=== PATIENT | female | born 1990 | race Caucasian/White ===

== ENCOUNTER → 2019-09-02 16:35 | Outpatient (CLI) | payer OTHER, SELFPAY ==
[2019-09-03 22:53] LABS: COVID19 Sendout Not Detected (Not Detected)
== END ==
PROVIDERS: PCP Family Medicine; Visit Provider Physician Assistant
DX: R05 Cough (principal)
CPT/HCPCS: 87635

== ENCOUNTER → 2019-11-23 15:59 | Outpatient (CLI) | payer OTHER, SELFPAY ==
--- NOTE | 2019-11-23 16:02 | DI.RAD.S_ITS ---
PROCEDURE: XR FOOT LT MIN 3V INDICATIONS: PT for 2 month atraumatic bilateral foot and ankle pain L>R TECHNIQUE: 3 views of the foot were acquired. COMPARISON: None. FINDINGS: Bones: No fractures or dislocations. No suspicious bony lesions. Plantar calcaneal spur. Mild first MTP joint degeneration. Soft tissues: No tibiotalar joint effusion. Achilles tendon appears normal. IMPRESSION: Plantar calcaneal spur Dictated by: Kenneth Castanon M.D. on 11/23/2019 at 16:44 Approved by: Kenneth Castanon M.D. on 11/23/2019 at 16:46
--- NOTE | 2019-11-23 16:02 | DI.RAD.S_ITS ---
PROCEDURE: XR FOOT RT MIN 3V INDICATIONS: PT for 2 month atraumatic bilateral foot and ankle pain L>R TECHNIQUE: 3 views of the foot were acquired. COMPARISON: None. FINDINGS: Bones: No fractures or dislocations. No suspicious bony lesions. Mild first MTP degeneration. Plantar calcaneal spur. Soft tissues: No tibiotalar joint effusion. Achilles tendon appears normal. IMPRESSION: Plantar calcaneal spur. Mild first MTP joint degeneration Dictated by: Kenneth Castanon M.D. on 11/23/2019 at 16:46 Approved by: Kenneth Castanon M.D. on 11/23/2019 at 16:49
--- NOTE | 2019-11-23 16:02 | DI.RAD.S_ITS ---
PROCEDURE: XR ANKLE LT MIN 3V INDICATIONS: PT for 2 month atraumatic bilateral foot and ankle pain L>R TECHNIQUE: 3 views of the ankle were acquired. COMPARISON: None. FINDINGS: Bones: No fractures or dislocations. Ankle mortise is normally aligned. No suspicious bony lesions. Plantar calcaneal spur. Soft tissues: No tibiotalar joint effusion. Achilles tendon appears normal. IMPRESSION: Plantar calcaneal spur. Dictated by: Kenneth Castanon M.D. on 11/23/2019 at 16:41 Approved by: Kenneth Castanon M.D. on 11/23/2019 at 16:43
--- NOTE | 2019-11-23 16:02 | DI.RAD.S_ITS ---
PROCEDURE: XR ANKLE RT MIN 3V INDICATIONS: PT for 2 month atraumatic bilateral foot and ankle pain L>R TECHNIQUE: 3 views of the ankle were acquired. COMPARISON: [facility], CR, XR FOOT RT MIN 3V, 11/23/2019, 15:53. [facility], CR, XR FOOT LT MIN 3V, 11/23/2019, 15:53. FINDINGS: Bones: No fractures or dislocations. Ankle mortise is normally aligned. No suspicious bony lesions. Plantar calcaneal spur Soft tissues: No tibiotalar joint effusion. Achilles tendon appears normal. IMPRESSION: Plantar calcaneal spur Dictated by: Kenneth Castanon M.D. on 11/23/2019 at 16:43 Approved by: Kenneth Castanon M.D. on 11/23/2019 at 16:44
== END ==
PROVIDERS: PCP Registered Nurse Diabetes Educator; Referring Provider Registered Nurse Diabetes Educator; Visit Provider Registered Nurse Diabetes Educator
DX: M25.571 Pain in right ankle and joints of right foot (principal); M25.572 Pain in left ankle and joints of left foot; M72.2 Plantar fascial fibromatosis; M77.32 Calcaneal spur, left foot; M77.31 Calcaneal spur, right foot; M19.071 Primary osteoarthritis, right ankle and foot
CPT/HCPCS: 73610; 73630

== ENCOUNTER 2020-11-03 21:19 | Emergency (ER) | payer OTHER, SELFPAY ==
[2020-11-03 21:28] VITALS: BP 135/65; PULSE 101; RESP 16; TEMP 36.6; O2SAT 97; BMI 40.3
[2020-11-03 21:47] LABS: Add Manual Diff / Slide Review NO; Basophils Absolute Auto 100 /uL (0-100); Basophils Percent Auto 0.6 % (0-2); Eosinophils Absolute Auto 200 /uL (0-450); Eosinophils Percent Auto 1.3 % (2-4); Hematocrit 45.2 % (36-46); Hemoglobin 15.4 g/dL (12.0-16.0); Lymphocytes Absolute Auto 900 /uL (1100-4500); Lymphocytes Percent Auto 7.3 % (25-40); Mean Corpuscular HGB Conc 34.2 % (30-36); Mean Corpuscular Hemoglobin 29.7 PG (26-34); Mean Corpuscular Volume 86.9 fL (80-100); Monocytes Absolute Auto 700 /uL (0-900); Monocytes Percent Auto 5.2 % (3-14); Neutrophils Absolute Auto 10900 /uL (1500-7000); Neutrophils Percent Auto 85.6 % (50-75); Platelet Count 209 X10^3/uL (150-400); Red Cell Distribution Width 13.3 % (11.6-14.8); White Blood Cell Count 12.7 X10^3/uL (4.5-11.0)
[2020-11-03] MEDS: ONDANSETRON 4 MG/2 ML INJ IV (21:47)
[2020-11-03] MEDS: SODIUM CHLORIDE 0.9% 1,000 ML 1000 ML IV (21:50)
[2020-11-03 21:53] LABS: Alanine Aminotransferase 22 IU/L (<35); Albumin 4.4 g/dL (3.5-5.0); Albumin Globulin Ratio 1.3 (1.0-2.8); Alkaline Phosphatase 105 U/L (38-126); Aspartate Aminotransferase 25 IU/L (14-36); BUN Creatinine Ratio 13.9 (6-22); Bilirubin Total 0.6 mg/dL (0.2-1.3); Blood Urea Nitrogen 14 mg/dL (7-17); Calcium 9.4 mg/dL (8.4-10.2); Carbon Dioxide 30 mmol/L (22-32); Chloride 100 mmol/L (98-107); Estimated Glomerular Filt Rate > 60.0 mL/min (>60); Globulin 3.5 g/dL (1.7-4.1); Glucose 96 mg/dL (70-100); HEMOLYSIS < 15 (0-50); Lipase 92 U/L (23-300); Potassium 3.6 mmol/L (3.4-5.1); Sodium 140 mmol/L (137-145); Total Protein 7.9 g/dL (6.3-8.2)
--- NOTE | 2020-11-03 22:44 | ED.ABDPAIN ---
HPI - Abdominal Pain General Chief Complaint: Abdominal Pain Stated Complaint: vomiting, chills, fever Time Seen by Provider: 11/03/20 21:35 Source: patient Mode of arrival: Wheelchair History of Present Illness HPI narrative: 30-year-old woman with no significant medical issues presents with diffuse mild abdominal pain with acute onset of vomiting at 8:00 p.m.. Last food was at 6:30 a.m. in the evening. She had a bowel movement that was normally formed just prior to the episode of emesis. She describes no fevers, palpitations, headaches. She states that today she was feeling her usual self. Initially she describes the abdominal pain as 7 to 8/10 she had 3 episodes of vomiting and now is down to 2 to 3/10 and achy from the effort of vomiting. She has not had any diarrhea. There is no blood in the emesis. She describes no dysuria, no vaginal discharge notes that she has been amenorrheic for the last 4 years Related Data Home Medications Medication Instructions Recorded Confirmed No Known Home Medications 11/23/19 10/29/20 Allergies Allergy/AdvReac Type Severity Reaction Status Date / Time diphenhydramine Allergy Severe SEVERE Verified 10/29/20 14:22 [From UNISOM flu-like Sx (DIPHENHYDRAMINE)] Review of Systems Review of Systems Narrative: Remainder of complete review of systems is otherwise unremarkable except for that included in the HPI. Patient History Medical History (Updated 11/03/20 @ 22:52 by Rose Byrd MD) Allergic rhinitis Ankle pain Anxiety (Unknown) Chickenpox Chronic cough (2003) Depression (Unknown) Dysmenorrhea (Unknown) Plantar fasciitis Surgical History History of nasal surgery (10/2000) Hx of tonsillectomy (~1993) Hx of tooth extraction Family History Grandfather Cancer Grandmother Age: 83 Cancer Mother Age: 63 Pancarditis Grandmother Age: 88 Cancer Grandfather No problems noted. Social History Smoking Status: Never smoker second hand exposure: No (only in passing) alcohol intake: current (rare occasion) substance use type: does not use Smoking Status: Never smoker alcohol intake frequency: 0-2 drinks per day Substance Use Type: does not use Exam Narrative Exam Narrative: General: Appears fatigued but Able to give a complete and coherent history. Well-nourished well-developed HEENT: Moist mucous membranes, normal sclera with reactive pupils, Respiratory: Lungs are clear to auscultation, no wheezing no rales no rhonchi. Full and symmetrical air movement Cardiac: Regular rate and rhythm no murmurs no bruits Abdomen: Soft, minimally tender to palpation, no rebound or guarding, good bowel tones, no flank pain Skin: Warm and dry, no rashes Neurologic: Grossly neurologically intact with no obvious asymmetries or abnormalities Extremities: No trauma, well perfused Psych: Cooperative, appropriate insight and affect Initial Vital Signs Initial Vital Signs: Vital Signs Temperature 97.9 F 11/03/20 21:28 Pulse Rate 101 H 11/03/20 21:28 Respiratory Rate 16 11/03/20 21:28 Blood Pressure 135/65 11/03/20 21:28 Pulse Oximetry 97 11/03/20 21:28 Course Orders Ordered: ED Orders 11/03/20 21:30 EKG-12 Lead Stat 11/03/20 21:35 Complete Blood Count AUTO DIFF Stat Comprehensive Metabolic Panel Stat Lipase Stat Discontinued Medications Sodium Chloride (Normal Saline 0.9%) 1,000 mls @ 1,000 mls/hr IV BOLUS ONE Stop: 11/03/20 22:43 Last Infusion: 11/03/20 23:01 Dose: 0 mls/hr Documented by: Admin: 11/03/20 21:50 Dose: 1,000 mls/hr Documented by: GHAZAL Ondansetron HCl (Ondansetron 4 Mg/2 Ml Inj) 4 mg IV NOW ONE Stop: 11/03/20 21:41 Last Admin: 11/03/20 21:47 Dose: 4 mg Documented by: GHAZAL Ondansetron HCl (Ondansetron 4 Mg Odt Prepack) 1 bottle MISC SEEINSTR ONE Stop: 11/03/20 22:53 Last Admin: 11/03/20 23:04 Dose: 1 bottle Documented by: GHAZAL Vital Signs Vital signs: Vital Signs - 8 hr 11/03/20 21:28 11/03/20 23:12 Temperature 97.9 F 98.7 F Pulse Rate 101 H 85 Respiratory Rate 16 18 Blood Pressure 135/65 130/67 Pulse Oximetry 97 98 MDM - Abdominal Pain Medical Records Attestation: I reviewed the patient's medical records. Lab Data Attestation: I reviewed the patient's lab results. Result diagrams: 11/03/20 21:35 11/03/20 21:35 Labs: Lab Results 11/03/20 11/03/20 Range/Units 21:35 21:35 WBC 12.7 H (4.5-11.0) X10^3/uL RBC 5.20 (4.0-5.2) X10^6/uL Hgb 15.4 (12.0-16.0) g/dL Hct 45.2 (36-46) % MCV 86.9 (80-100) fL MCH 29.7 (26-34) PG MCHC 34.2 (30-36) % RDW 13.3 (11.6-14.8) % Plt Count 209 (150-400) X10^3/uL Neut % (Auto) 85.6 H (50-75) % Lymph % (Auto) 7.3 L (25-40) % Lipscomb % (Auto) 5.2 (3-14) % Eos % (Auto) 1.3 L (2-4) % Baso % (Auto) 0.6 (0-2) % Neut # (Auto) 34057 H (6504-6842) /uL Lymph # (Auto) 900 L (5767-2559) /uL Lipscomb # (Auto) 700 (0-900) /uL Eos # (Auto) 200 (0-450) /uL Baso # (Auto) 100 (0-100) /uL Sodium 140 (137-145) mmol/L Potassium 3.6 (3.4-5.1) mmol/L Chloride 100 (98-107) mmol/L Carbon Dioxide 30 (22-32) mmol/L BUN 14 (7-17) mg/dL Creatinine 1.01 (0.52-1.04) mg/dL Estimated GFR > 60.0 (>60) mL/min BUN/Creatinine Ratio 13.9 (6-22) Glucose 96 (70-100) mg/dL Calcium 9.4 (8.4-10.2) mg/dL Total Bilirubin 0.6 (0.2-1.3) mg/dL AST 25 (14-36) IU/L ALT 22 (<35) IU/L Alkaline Phosphatase 105 (38-126) U/L Total Protein 7.9 (6.3-8.2) g/dL Albumin 4.4 (3.5-5.0) g/dL Globulin 3.5 (1.7-4.1) g/dL Albumin/Globulin Ratio 1.3 (1.0-2.8) Lipase 92 (23-300) U/L ECG Data Interpretation: Sinus rhythm at a rate of 98 Normal intervals, normal axis No acute ischemic changes MDM Narrative Medical decision making narrative: 30-year-old woman with 3 episodes of vomiting and associated mild abdominal pain. Feeling significantly better after L of fluid and Zofran. She is re-examined prior to discharge and has no significant abdominal pain with palpation and certainly not a surgical abdomen. We did discuss appendicitis and how it can be a bit tricky. At this point I do not suspect sepsis, bowel obstruction, appendicitis, cholecystitis or cholelithiasis, pyelonephritis, urinary tract infection, appendicitis. I encouraged her to return if symptoms do not improve. She will be discharged home with a Zofran prepack. Discharge Plan Departure Patient Disposition: Home Clinical Impression: Nausea & vomiting Qualifiers: Vomiting type: unspecified Vomiting Intractability: non-intractable Qualified Code(s): R11.2 - Nausea with vomiting, unspecified Instructions: DI for Appendicitis -- Adult, Nausea and Vomiting-Adult Activity Restrictions/Additional Instructions: Thank you for coming in today I am glad you are feeling better after fluid and nausea medication. Your workup in the emergency room does not suggest an acute surgical diagnosis, there is no evidence of appendicitis at this time however if things get worse and you begin having pain that is localizing to the right lower quadrant I would encourage you to return to the emergency room for further evaluation. You can use the Zofran every 6 hours as needed for nausea. I would encourage you to stick to a bland diet and plenty of fluid tomorrow. I wish you the best Prescriptions: No Action No Known Home Medications RF: 0 Referrals: Tawanda Christensen ARNP [Primary Care Provider] -
[2020-11-03] MEDS: ONDANSETRON 4 MG ODT PREPACK 1 BOTTLE MISC (23:04)
[2020-11-03 23:12] VITALS: BP 130/67; PULSE 85; RESP 18; TEMP 37.1; O2SAT 98
== END 2020-11-03 23:13 | disposition home or self-care (01) ==
PROVIDERS: Emergency Provider Emergency Medicine; PCP Registered Nurse Diabetes Educator
DX: R11.2 Nausea with vomiting, unspecified (principal); R10.9 Unspecified abdominal pain
CPT/HCPCS: 36415; 80053; 83690; 85025; 93005; 96361; 96374; 99284; J2405

== ENCOUNTER → 2022-07-01 08:54 | Outpatient (CLI) | payer OTHER, SELFPAY ==
[2022-07-01 09:35] LABS: Hematocrit 42.3 % (36-46); Hemoglobin 14.9 g/dL (12.0-16.0); Mean Corpuscular HGB Conc 35.3 % (30-36); Mean Corpuscular Hemoglobin 30.5 PG (26-34); Mean Corpuscular Volume 86.5 fL (80-100); Platelet Count 215 X10^3/uL (150-400); Red Blood Cell Count 4.89 X10^6/uL (4.0-5.2); Red Cell Distribution Width 13.5 % (11.6-14.8); White Blood Cell Count 8.5 X10^3/uL (4.5-11.0)
[2022-07-01 09:41] LABS: Hemoglobin A1C% w Est Avg Glu 6.4 % (4.0-6.0)
[2022-07-01 09:51] LABS: Alanine Aminotransferase 29 IU/L (<35); Albumin Globulin Ratio 1.3 (1.0-2.8); Alkaline Phosphatase 126 U/L (38-126); Aspartate Aminotransferase 22 IU/L (14-36); BUN Creatinine Ratio 9.7 (6-22); Bilirubin Total 0.4 mg/dL (0.2-1.3); Blood Urea Nitrogen 6 mg/dL (7-17); Calcium 8.5 mg/dL (8.4-10.2); Carbon Dioxide 22 mmol/L (22-32); Chloride 104 mmol/L (98-107); Cholesterol 204 mg/dL (140-199); Estimated Glomerular Filt Rate > 60 mL/min (>60); Globulin 3.1 g/dL (1.7-4.1); Glucose 145 mg/dL (70-100); HDL Cholesterol 26 mg/dL (40-60); HEMOLYSIS 22 (0-50); LDL Cholesterol Calculated 108 mg/dL (<100); Potassium 3.8 mmol/L (3.4-5.1); Sodium 136 mmol/L (137-145); Total Protein 7.1 g/dL (6.3-8.2); Triglycerides 348 mg/dL (35-150)
[2022-07-01 10:01] LABS: Follicle Stimulating Hormone 3.05 mIU/mL; Luteinizing Hormone 4.49 mIU/mL
[2022-07-01 10:16] LABS: Estradiol, Total 57.7 pg/mL; Testosterone 101 ng/dL (5.71-77.0)
[2022-07-01 10:26] LABS: TSH w/ Reflex to FT4 2.31 uIU/mL (0.47-4.68)
== END ==
PROVIDERS: PCP Registered Nurse Diabetes Educator; Referring Provider Registered Nurse Diabetes Educator; Visit Provider Registered Nurse Diabetes Educator
DX: Z00.00 Encounter for general adult medical examination without abnormal findings (principal); L68.0 Hirsutism; N91.2 Amenorrhea, unspecified
CPT/HCPCS: 36415; 80053; 80061; 82627; 82670; 83001; 83002; 83036; 83498; 84146; 84403; 84443; 85027

== ENCOUNTER → 2022-07-17 10:54 | Outpatient (CLI) | payer OTHER, SELFPAY ==
[2022-07-17 12:02] LABS: Glucose 105 mg/dL (70-100)
== END ==
PROVIDERS: PCP Registered Nurse Diabetes Educator; Referring Provider Registered Nurse Diabetes Educator; Visit Provider Registered Nurse Diabetes Educator
DX: R73.9 Hyperglycemia, unspecified (principal)
CPT/HCPCS: 36415; 82947

== ENCOUNTER → 2022-08-28 07:21 | Outpatient (CLI) | payer OTHER, SELFPAY ==
--- NOTE | 2022-08-28 07:22 | DI.US.S_ITS ---
PROCEDURE: US PELVIC COMPLETE INDICATIONS: AMENORRHEA TECHNIQUE: Real-time scanning was performed of the pelvic organs, with image documentation. Additional endovaginal scanning was necessary due to incomplete visualization of the adnexal and endometrial structures by transabdominal scanning. COMPARISON: [facility], , PELVIC COMPLETE, 07/14/2017, 14:23. FINDINGS: Uterus: Uterus is anteverted and normal in size at 6.6 x 2.8 x 3.6 cm. The myometrium is homogeneous. No discrete uterine fibroid is seen. The endometrium measures 2.2 mm combined thickness. There is no endometrial mass or fluid. Ovaries: The right ovary measures 2.7 x 5.3 x 3 cm, with a calculated ovarian volume of 22.5 cc. The left ovary measures 4.1 x 4.3 x 2 cm, with a calculated ovarian volume of 18.5 cc. The ovaries have a normal sonographic appearance. Greater than 12 follicles can be seen in each ovary. No adnexal masses are seen. Other: No pathologic free abdominal or pelvic fluid. IMPRESSION: 1. Normal appearing uterus and endometrium. 2. Greater than 12 follicles are seen in each ovary. Findings meet the [place] definition of polycystic ovaries. In the absence of ovulatory dysfunction or clinically/biochemically diagnosed hyperandrogenism, findings are non specific and do not indicate the presence of polycystic ovarian syndrome. We strive to produce accurate, complete, and clear reports of imaging services. To assist us in improving patient care, this report was composed using standard report templates and voice recognition software. Therefore, it may contain abnormal punctuation, insertions and/or omissions. Occasional wrong-word or sound-alike substitutions may occur. Though we review the report and make efforts to correct it, we do recommend that the report be read carefully in proper context to recognize any text inaccuracies. Dictated by: Igor Severino M.D. on 08/28/2022 at 9:42 Approved by: Igor Severino M.D. on 08/28/2022 at 9:45
== END ==
PROVIDERS: PCP Registered Nurse Diabetes Educator; Referring Provider Registered Nurse Diabetes Educator; Visit Provider Registered Nurse Diabetes Educator
DX: N91.2 Amenorrhea, unspecified (principal)
CPT/HCPCS: 76830; 76856; 93975

== ENCOUNTER 2022-11-01 15:52 | Emergency (ER) | payer OTHER, SELFPAY ==
[2022-11-01 16:03] VITALS: BP 140/67; PULSE 49; RESP 18; TEMP 36.4; O2SAT 96; BMI 41.9
[2022-11-01] MEDS: ONDANSETRON 4 MG/2 ML INJ IV ×2 (16:56→20:44)
[2022-11-01 17:02] LABS: Add Manual Diff / Slide Review NO; Basophils Absolute Auto 100 /uL (0-100); Basophils Percent Auto 0.5 % (0-2); Eosinophils Absolute Auto 100 /uL (0-450); Hematocrit 40.4 % (36-46); Hemoglobin 14.1 g/dL (12.0-16.0); Lymphocytes Absolute Auto 1400 /uL (1100-4500); Lymphocytes Percent Auto 9.4 % (25-40); Mean Corpuscular HGB Conc 34.9 % (30-36); Mean Corpuscular Hemoglobin 29.6 PG (26-34); Mean Corpuscular Volume 84.9 fL (80-100); Monocytes Absolute Auto 500 /uL (0-900); Monocytes Percent Auto 3.3 % (3-14); Neutrophils Absolute Auto 12500 /uL (1500-7000); Neutrophils Percent Auto 85.8 % (50-75); Platelet Count 275 X10^3/uL (150-400); Red Blood Cell Count 4.76 X10^6/uL (4.0-5.2); Red Cell Distribution Width 13.1 % (11.6-14.8); White Blood Cell Count 14.6 X10^3/uL (4.5-11.0)
[2022-11-01 17:15] LABS: Alanine Aminotransferase 25 IU/L (<35); Albumin 4.6 g/dL (3.5-5.0); Albumin Globulin Ratio 1.4 (1.0-2.8); Alkaline Phosphatase 97 U/L (38-126); Aspartate Aminotransferase 22 IU/L (14-36); BUN Creatinine Ratio 10.6 (6-22); Bilirubin Total 0.5 mg/dL (0.2-1.3); Blood Urea Nitrogen 10 mg/dL (7-17); Calcium 9.1 mg/dL (8.4-10.2); Carbon Dioxide 21 mmol/L (22-32); Chloride 104 mmol/L (98-107); Estimated Glomerular Filt Rate > 60 mL/min (>60); Globulin 3.3 g/dL (1.7-4.1); Glucose 137 mg/dL (70-100); HEMOLYSIS 21 (0-50); Lipase 78 U/L (23-300); Potassium 3.9 mmol/L (3.4-5.1); Sodium 138 mmol/L (137-145); Total Protein 7.9 g/dL (6.3-8.2)
[2022-11-01 17:53] LABS: RBC Urine 5-10/HPF (0-5/HPF); Squamous Epithelial Cell Urine 1-5 /HPF (0-5/HPF); WBC Urine 0-1/HPF (0-5/HPF)
[2022-11-01 17:54] LABS: Bacteria Urine None Seen; Culture Indicated Urine Cult Not Indicated
[2022-11-01] MEDS: SODIUM CHLORIDE 0.9% 1,000 ML 1000 ML IV ×2 (19:17→20:44)
[2022-11-01 19:24] VITALS: BP 165/69; RESP 16
[2022-11-01 19:48] VITALS: BP 161/85; PULSE 64; RESP 22; O2SAT 95
--- NOTE | 2022-11-01 20:24 | DI.CT.S_ITS ---
PROCEDURE: CT ABDOMEN PELVIS W CON INDICATIONS: RLQ pain, leukocytosis TECHNIQUE: After the administration of intravenous contrast, axial sections acquired from the lung bases to the pubic symphysis. Coronal and sagittal reformats were performed. For radiation dose reduction, the following was used: automated exposure control, adjustment of mA and/or kV according to patient size. COMPARISON: None. FINDINGS: Image quality: Excellent. Lung bases: Unremarkable. Heart: No significant findings. ABDOMEN: Liver: Unremarkable. Gallbladder: Unremarkable. Biliary ducts: Unremarkable. Pancreas: Unremarkable. Spleen: Unremarkable. Adrenal Glands: Unremarkable. Kidneys and Ureters: Unremarkable on the left but there is mildly reduced perfusion to the right kidney associated with mild right hydronephrosis and proximal right hydroureter associated with a 6 mm maximal diameter upper 3rd right ureteral stone that measures up to 1000 Hounsfield units.. Stomach and Bowel: Stomach, small bowel loops, and colon are unremarkable. Peritoneum: No abnormal intraperitoneal fluid. No free air. Ventral Wall: No hernias. Abdominal Nodes: No retroperitoneal or mesenteric adenopathy by size criteria. Vessels: Aorta and inferior vena cava are normal in size. PELVIS: Pelvic Organs: Unremarkable. Bladder: Unremarkable. Pelvic Nodes: No enlarged lymph nodes. Miscellaneous: No hernias are seen. Normal appendix found right lower quadrant. Bones: Unremarkable. IMPRESSION: Etiology of current symptoms appears to be secondary to a 6 mm impacted proximal right ureteral stone causing [id number] right hydronephrosis and hydroureter and secondary mild reduced perfusion to the right kidney when compared with normal appearance on the left. A stone of this size may not pass without urologic intervention. Normal appendix found. Dictated by: Omar Friedman M.D. on 11/01/2022 at 21:04 Approved by: Omar Friedman M.D. on 11/01/2022 at 21:08
--- NOTE | 2022-11-01 21:43 | ED.NAVMDI ---
HPI - Nausea/Vomiting/Diarrhea General Chief complaint: Nausea/Vomiting/Diarrhea Stated complaint: Back/stomach pain Time Seen by Provider: 11/01/22 20:22 Source: patient Mode of arrival: Ambulatory History of Present Illness HPI Narrative: 32-year-old female nonsmoker with history of diabetes presents with a chief complaint of sudden onset right flank pain that started at about 11:00 a.m. this afternoon. She admits to severe pain no obvious provocation or palliation, maybe a small amount of radiation around the right flank and a few episodes of nausea and vomiting when the pain was intense. She denies any history of the same. She denies any worsening with motion or improvement with rest. She denies fever or chills. She denies any dysuria, frequency or urgency and denies any change in her bowel habits. Related Data Home Medications Medication Instructions Recorded Confirmed loratadine 10 mg tablet (Claritin) 10 mg PO DAILY 08/06/22 08/06/22 Previous Rx's Medication Instructions Recorded drospirenone 3 mg-ethinyl 1 tab PO DAILY #84 tabs 08/06/22 estradiol 0.02 mg tablet (ALVAREZ (28)) metformin 500 mg tablet 500 mg PO BID #180 tabs 08/06/22 cephalexin 500 mg capsule 500 mg PO BID #10 caps 11/01/22 hydrocodone 5 mg-acetaminophen 325 1 tab PO Q4-6H PRN pain #10 tabs 11/01/22 mg tablet ketorolac 10 mg tablet 10 mg PO Q6H PRN pain #14 tabs 11/01/22 ondansetron 4 mg disintegrating 4 mg PO TID-QID PRN nausea and 11/01/22 tablet vomiting #10 tabs tamsulosin 0.4 mg capsule (Flomax) 0.4 mg PO DAILY #30 caps 11/01/22 Allergies Allergy/AdvReac Type Severity Reaction Status Date / Time diphenhydramine Allergy Severe SEVERE Verified 11/01/22 16:02 [From [facility] flu-like Sx (DIPHENHYDRAMINE)] Review of Systems Review of Systems Narrative: GENERAL: Denies chills, fatigue, malaise, fever, sweats. HEENT: Denies sinus pain, ear pain, sore throat, difficulty swallowing, dizziness. RESPIRATORY: Denies dyspnea, cough, wheezing, hemoptysis, sputum. CARDIOVASCULAR: Denies chest pain, palpitations, orthopnea, edema, GASTROINTESTINAL: See HPI : See HPI MUSCULOSKELETAL: denies weakness, joint pain, or bony pain SKIN: Denies rash, skin lesions, or other NEUROLOGIC: Denies weakness, headache, numbness, change in speech, confusion, seizures, incoordination. PSYCHIATRIC: No concerning psychosocial issues. 12 point review of systems is negative except for those stated above Patient History Medical History Allergic rhinitis Ankle pain Anxiety (Unknown) Chickenpox Chronic cough (2003) Depression (Unknown) Dyslipidemia Dysmenorrhea (Unknown) Metabolic syndrome PCOS (polycystic ovarian syndrome) Plantar fasciitis Surgical History History of nasal surgery (10/2000) Hx of tonsillectomy (~1993) Hx of tooth extraction Family History Grandfather Cancer Grandmother Age: 85 Cancer Mother Age: 65 Pancarditis Grandmother Age: 90 Cancer Grandfather No problems noted. Social History Smoking Status: Never smoker second hand exposure: No (only in passing) alcohol intake: current (rare occasion) substance use type: does not use Smoking Status: Never smoker alcohol intake frequency: 0-2 drinks per day Substance Use Type: does not use Exam Narrative Exam Narrative: GENERAL: 32] year old patient appears stated age. Well-developed patient, in mild distress. HEAD: Atraumatic. Normocephalic. EYES: Pupils equal round and reactive. Extraocular motions intact. No scleral icterus. No injection or drainage. ENT: Nose without bleeding, purulent drainage. Throat without erythema, tonsillar hypertrophy or exudate. Airway patent. NECK: Trachea midline. Non tender CARDIOVASCULAR: Regular rate and rhythm without murmurs, gallops, or rubs. RESPIRATORY: Clear to auscultation. Breath sounds equal bilaterally. No wheezes, rales, or rhonchi. GASTROINTESTINAL: Abdomen soft, non-tender, nondistended. EXTREMITIES: No edema or joint tenderness. BACK: Nontender without deformity or crepitance. No flank tenderness. NEURO: AOx3. SKIN: No rash or erythema of visible areas Initial Vital Signs Initial Vital Signs: Vital Signs Temperature 97.5 F L 11/01/22 16:03 Pulse Rate 49 L 11/01/22 16:03 Respiratory Rate 18 11/01/22 16:03 Blood Pressure 140/67 11/01/22 16:03 Pulse Oximetry 96 11/01/22 16:03 Oxygen Delivery Method Room Air 11/01/22 16:03 Course Orders Ordered: Discontinued Medications Hydrocodone Bitart/Acetaminophen (Hydrocodone/Acet 5/325 Prepack) 1 bottle MISC SEEINSTR ONE Stop: 11/01/22 22:52 Last Admin: 11/01/22 23:13 Dose: 1 bottle Documented By: ANGELIQUE Sodium Chloride (Normal Saline 0.9%) 1,000 mls @ 1,000 mls/hr IV BOLUS ONE Stop: 11/01/22 20:07 Last Infusion: 11/01/22 20:23 Dose: 0 mls/hr Documented By: Admin: 11/01/22 19:17 Dose: 1,000 mls/hr Documented By: AT Sodium Chloride (Normal Saline 0.9%) 1,000 mls @ 1,000 mls/hr IV BOLUS ONE Stop: 11/01/22 21:22 Last Infusion: 11/01/22 23:13 Dose: 0 mls/hr Documented By: Admin: 11/01/22 20:44 Dose: 1,000 mls/hr Documented By: KIRSTEN Ketorolac Tromethamine (Ketorolac 30 Mg/Ml Vial) 15 mg IV NOW ONE Stop: 11/01/22 21:50 Last Admin: 11/01/22 22:02 Dose: 15 mg Documented By: ANGELIQUE Ondansetron HCl (Ondansetron 4 Mg Odt) 4 mg PO NOW PRN PRN Reason: Nausea And Vomiting Ondansetron HCl (Ondansetron 4 Mg/2 Ml Inj) 4 mg IV NOW PRN PRN Reason: Nausea And Vomiting Last Admin: 11/01/22 16:56 Dose: 4 mg Documented By: AT Ondansetron HCl (Ondansetron 4 Mg/2 Ml Inj) 4 mg IV NOW ONE Stop: 11/01/22 20:24 Last Admin: 11/01/22 20:44 Dose: 4 mg Documented By: KIRSTEN Ondansetron HCl (Ondansetron 4 Mg Odt Prepack) 1 bottle MISC SEEINSTR ONE Stop: 11/01/22 22:52 Last Admin: 11/01/22 23:13 Dose: 1 bottle Documented By: ANGELIQUE Tamsulosin HCl (Tamsulosin 0.4 Mg Capsule) 0.4 mg PO NOW ONE Stop: 11/01/22 21:50 Last Admin: 11/01/22 22:02 Dose: 0.4 mg Documented By: ANGELIQUE Consultations Consultation #1: Call to urology, after discussing with their on-call physician we sure the opinion the patient is appropriate for discharge with typical return precautions. Vital Signs Vital signs: Vital Signs - 8 hr 11/01/22 22:05 11/01/22 23:11 Temperature 97.6 F Pulse Rate 53 L 78 Blood Pressure 161/80 H 152/70 H Pulse Oximetry 96 95 Oxygen Delivery Method Room Air MDM - Nausea/Vomiting/Diarrhea Lab Data 11/01/22 16:50 11/01/22 16:50 Labs: Lab Results 11/01/22 11/01/22 11/01/22 Range/Units 16:50 16:50 16:50 WBC 14.6 H (4.5-11.0) X10^3/uL RBC 4.76 (4.0-5.2) X10^6/uL Hgb 14.1 (12.0-16.0) g/dL Hct 40.4 (36-46) % MCV 84.9 (80-100) fL MCH 29.6 (26-34) PG MCHC 34.9 (30-36) % RDW 13.1 (11.6-14.8) % Plt Count 275 (150-400) X10^3/uL Neut % (Auto) 85.8 H (50-75) % Lymph % (Auto) 9.4 L (25-40) % [place] % (Auto) 3.3 (3-14) % Eos % (Auto) 1.0 L (2-4) % Baso % (Auto) 0.5 (0-2) % Neut # (Auto) 62287 H (5877-6243) /uL Lymph # (Auto) 1400 (8715-3074) /uL [place] # (Auto) 500 (0-900) /uL Eos # (Auto) 100 (0-450) /uL Baso # (Auto) 100 (0-100) /uL Sodium 138 (137-145) mmol/L Potassium 3.9 (3.4-5.1) mmol/L Chloride 104 (98-107) mmol/L Carbon Dioxide 21 L (22-32) mmol/L BUN 10 (7-17) mg/dL Creatinine 0.94 (0.52-1.04) mg/dL Estimated GFR > 60 (>60) mL/min BUN/Creatinine Ratio 10.6 (6-22) Glucose 137 H (70-100) mg/dL Calcium 9.1 (8.4-10.2) mg/dL Total Bilirubin 0.5 (0.2-1.3) mg/dL AST 22 (14-36) IU/L ALT 25 (<35) IU/L Alkaline Phosphatase 97 (38-126) U/L Total Protein 7.9 (6.3-8.2) g/dL Albumin 4.6 (3.5-5.0) g/dL Globulin 3.3 (1.7-4.1) g/dL Albumin/Globulin Ratio 1.4 (1.0-2.8) Lipase 78 (23-300) U/L Urine RBC 5-10/hpf H (0-5/HPF) Urine WBC 0-1/hpf (0-5/HPF) Ur Squamous Epith Cells 1-5 /hpf (0-5/HPF) Urine Bacteria None seen (None) Ur Culture Indicated? Cult not indicated Point of Care Testing Test Results Negative Urine Dip Bedside Urine Glucose Negative Bedside Urine Bilirubin - Negative Bedside Urine Ketone ++ 40 Urine Specific Skipwith 1.030 Bedside Urine Occult Blood +++ Bedside Urine pH 6.0 Bedside Urine Protein + 30 Bedside Urine Urobilinogen - Negative Bedside Urine Nitrite - Negative Bedside Urine Leukocytes - Negative Esterase MDM Narrative Medical decision making narrative: [32] year old patient presents with relatively sudden onset right flank pain Multiple etiologies for patient's symptoms considered including, but not limited to: [Kidney stone versus bowel obstruction versus other] Prior Charts reviewed in our EMR Primary Historian: patient Labs reviewed and interpreted by myself: White count elevated at 14.6 with minimal relative left shift, no signs of anemia, electrolytes and renal function within normal. No signs of infection in urine Imaging reviewed: CT KUB demonstrates 6 mm proximal stone with associated hydro Consultations: Discussed with the [facility] urology, see details above Patient's symptoms improved over duration of stay with above-stated therapies. Pain is well controlled, patient is tolerating orals, no signs of sepsis or infectious process. Per discussion with Urology given the slight increase in white blood cells and history of diabetes recommends treating with antibiotics Findings and discharge diagnosis discussed with patient/family followed by verbalization of understanding Return precautions discussed with patient/family whom verbalize understanding of diagnosis and plan Discharge Plan Departure Patient Disposition: Home Clinical Impression: Kidney stone on right side Instructions: DI for Kidney Stones Activity Restrictions/Additional Instructions: *You have been diagnosed with [right-sided kidney stone] *What to do: *Please continue to take your regular medications as directed. [x ] New medication prescriptions sent to your pharmacy: [[facility] ] [ ] New medication written as a paper prescription [ ] No new medications given *Please follow up with your primary care provider in 2-3 days, call for an appointment. Let them know you were seen in the Emergency Department and that we ask that you be seen in follow up. We will electronically transmit a record of today's note if your PCP is in our system *If you do not have a primary care provider please contact the [facility] Resource line at [phone]. They will ask some questions about your medical history and help get you set up with a doctor in the community. *Return to Emergency Department if you should have any new, worsening or concerning symptoms, such as [fever greater than 101 F, shaking chills, worsening pain, persistent vomiting or other bothersome symptoms] You have been prescribed a short course of narcotic medications. These are potentially dangerous and addictive medications that should be used carefully. While on these medications you cannot drive or operate heavy machinery. Additionally, you cannot sign legal documents or perform any duties such as this. Many people get constipated on narcotic medications so it would be advisable to discuss stool softeners with the pharmacist when you lease picker your prescription. Please understand that we cannot provide further refills of narcotics or controlled substances through the ED and your pain management will need to be through your Primary Care Provider Prescriptions: New hydrocodone-acetaminophen 5-325 mg tablet 1 tab PO Q4-6H PRN (Reason: pain) Qty: 10 0RF ketorolac 10 mg tablet 10 mg PO Q6H PRN (Reason: pain) Qty: 14 0RF tamsulosin [Flomax] 0.4 mg capsule 0.4 mg PO DAILY Qty: 30 0RF cephalexin 500 mg capsule 500 mg PO BID Qty: 10 0RF ondansetron 4 mg tablet,disintegrating 4 mg PO TID-QID PRN (Reason: nausea and vomiting) Qty: 10 0RF No Action loratadine [Claritin] 10 mg tablet 10 mg PO DAILY drospirenone-ethinyl estradiol [ALVAREZ (28)] 3-0.02 mg tablet 1 tab PO DAILY Qty: 84 3RF metformin 500 mg tablet 500 mg PO BID Qty: 180 3RF Rx Instructions: For first 2 weeks take only 1 tab daily and only increase to twice daily after side effects decrease Referrals: Neel Bravo MD [Physician] - Tawanda Christensen ARNP [Primary Care Provider] - Stand Alone Forms: Patient Portal/API
[2022-11-01] MEDS: KETOROLAC 30 MG/ML VIAL 15 MG IV (22:02)
[2022-11-01] MEDS: TAMSULOSIN 0.4 MG CAPSULE PO (22:02)
[2022-11-01 22:05] VITALS: BP 161/80; PULSE 53; O2SAT 96
[2022-11-01 23:11] VITALS: BP 152/70; PULSE 78; TEMP 36.4; O2SAT 95
[2022-11-01] MEDS: ONDANSETRON 4 MG ODT PREPACK 1 BOTTLE MISC (23:13)
[2022-11-01] MEDS: HYDROCODONE/ACET 5/325 PREPACK 1 BOTTLE MISC (23:13)
== END 2022-11-01 23:18 | disposition home or self-care (01) ==
PROVIDERS: Emergency Medicine; Emergency Provider Emergency Medicine; PCP Registered Nurse Diabetes Educator
DX: N20.0 Calculus of kidney (principal)
CPT/HCPCS: 36415; 74177; 80053; 81003; 81015; 81025; 83690; 85025; 96361; 96374; 96375; 96376; 99284; J1885; J2405; Q9967

== ENCOUNTER → 2022-11-05 11:58 | Outpatient (CLI) | payer OTHER, SELFPAY ==
--- NOTE | 2022-11-05 11:59 | DI.RAD.S_ITS ---
PROCEDURE: XR KUB INDICATIONS: kidney stones TECHNIQUE: One view of the abdomen acquired. COMPARISON: [facility], CT, CT ABDOMEN PELVIS W CON, 11/01/2022, 20:33. FINDINGS: Surgical changes and devices: None. Bowel: Bowel gas pattern is normal. Soft tissues: 6 millimeter calcification is seen in the region of right proximal to mid ureter at approximately L3-4 level. No left-sided renal calcification is seen. Visualized solid organ contours appear normal in size. Bones: No suspicious bony lesions. IMPRESSION: Finding is suggestive of a 6 millimeter proximal to mid right ureteral stone. No left-sided renal stone is seen. Dictated by: Igor Severino M.D. on 11/05/2022 at 14:58 Approved by: Igor Severino M.D. on 11/05/2022 at 15:05
== END ==
PROVIDERS: PCP Registered Nurse Diabetes Educator; Referring Provider Specialist; Visit Provider Specialist
DX: N20.0 Calculus of kidney (principal)
CPT/HCPCS: 74018

== ENCOUNTER → 2022-11-12 11:57 | Outpatient (CLI) | payer OTHER, SELFPAY | PROVIDERS: PCP Registered Nurse Diabetes Educator; Visit Provider Specialist | DX: N20.2 Calculus of kidney with calculus of ureter (principal); N23 Unspecified renal colic | CPT/HCPCS: 81002; 87086 ==

== ENCOUNTER 2022-11-17 12:28 | Day surgery (SDC) | payer OTHER, SELFPAY ==
[2022-11-12 13:35] VITALS: BMI 40.5
--- NOTE | 2022-11-17 | DI.RAD.S_ITS ---
PROCEDURE: XR KUB INDICATIONS: Right renal calculus TECHNIQUE: One view of the abdomen acquired. COMPARISON: [facility], CT, CT ABDOMEN PELVIS W CON, 11/01/2022, 20:33. [facility], CR, XR KUB, 11/05/2022, 12:08. FINDINGS: Surgical changes and devices: None. Bowel: Bowel gas pattern is normal. Soft tissues: Possible 6 mm mid right ureteral tone at level of L4-L5. Visualized solid organ contours appear normal in size. Bones: No suspicious bony lesions. IMPRESSION: Suspect a 6 mm right ureteral stone. Dictated by: Anoop Fenton M.D. on 11/17/2022 at 15:23 Approved by: Anoop Fenton M.D. on 11/17/2022 at 15:28
[2022-11-17 12:47] VITALS: BMI 40.5
[2022-11-17 12:58] VITALS: BP 132/77; PULSE 87; RESP 19; TEMP 36.7; O2SAT 96; BMI 40.5
[2022-11-17] MEDS: LACTATED RINGERS 1,000 ML 42 ML IV (13:07)
--- NOTE | 2022-11-17 13:50 | PM.PREOP ---
Pre-operative Note COVID-19 Criteria for continued procedure: Expected advancement of disease process, Possibility delay results in more complex future surgery or treatment, Increased loss of function, Continuing or worsening of significant or severe pain, Deterioration of the patient's condition or overall health, Delay expected to result in less-positive ultimate med/surg outcome and Non-surgical alternatives not available or appropriate per current SOC Interval Note History & Physical reviewed/Exam performed by Physician: Yes Changes to H&P: No
[2022-11-17] MEDS: CEFAZOLIN 2 GM/100 ML PREMIX 100 ML IV (14:30)
--- NOTE | 2022-11-17 14:34 | SUR.OPER ---
Supine on ESWL table, head on pillow, legs uncrossed, arms padded, heedls padded, foam triangle under legs provided by ESWL rep.
[2022-11-17 15:14] VITALS: BP 105/58; PULSE 84; RESP 13; TEMP 36.5; O2SAT 96
--- NOTE | 2022-11-17 15:17 | PM.OP.1 ---
Operative Date/Time/Diagnoses Date of procedure: 11/17/22 Time of procedure: 15:00 Pre-op diagnosis: 1. Obstructing 8 mm right UPJ/proximal ureteral calculus. 2. history of right renal pelvic. Post-op diagnosis: same Procedure & Clinicians Procedure: 1. Right extracorporeal shockwave lithotripsy (maximal power level Same procedure as scheduled: Yes Indications: 1. Obstructing 8 mm right proximal ureteral/UPJ calculus. 2. History of right renal colic. Surgeon: Neel Bravo Click Yes if Unassisted: Yes Anesthesia Type: General Operative Notes Findings: Index calculus may have migrated 1-2 cm distally compared to previous imaging. Closure Type: not applicable Specimen(s): none sent Estimated Blood Loss (mL): 0 Blood products transfused: none Procedure in detail: The patient was positioned supine the above-described stone localized in the X, Y, and Z plane. Lithotripsy was commenced at minimal power level and then gradually increased to a maximum power level of 9.0. Throughout treatment the stone was reassessed fluoroscopically as needed. At 2000 shocks there was evidence of stone comminution with elongation and reduced density of the index calculus. Treatment was halted. The patient was then awakened, transferred to a gurney, then transported to recovery in stable condition. Complications: none Post-operative Condition: stable Disposition: PACU Plan for aftercare: Discharge home.
[2022-11-17 15:19] VITALS: BP 101/66; PULSE 77; RESP 14; O2SAT 98
[2022-11-17 15:24] VITALS: BP 102/68; PULSE 82; RESP 16; O2SAT 98
[2022-11-17] MEDS: FUROSEMIDE 40 MG/4 ML VIAL 20 MG IV (15:25)
[2022-11-17 15:29] VITALS: BP 105/66; PULSE 76; RESP 15; O2SAT 98
[2022-11-17 15:34] VITALS: BP 107/60; PULSE 77; RESP 16; TEMP 36.2; O2SAT 97
--- NOTE | 2022-11-17 16:00 | SUR.PHASEII ---
pt voided 1000 ml, tea colored with two small clots. strained, no stones.
== END 2022-11-17 16:16 | disposition home or self-care (01) ==
PROVIDERS: PCP Registered Nurse Diabetes Educator; Referring Provider Specialist; Visit Provider Specialist
PROC: (CPT 50590; principal; 2022-11-17 14:15)
DX: N20.1 Calculus of ureter (principal)
CPT/HCPCS: 50590; 74018; 82962; J0690; J1940; J2250; J2405; J2704; J3010

== ENCOUNTER → 2022-11-18 16:41 | Outpatient (CLI) | payer OTHER, SELFPAY ==
[2022-11-22 15:08] LABS: Ca oxalate monohydr 40 % (.); Hydroxyapatite 60 % (.); Size 3x2 mm (.)
== END ==
PROVIDERS: PCP Registered Nurse Diabetes Educator; Visit Provider Specialist
DX: N20.1 Calculus of ureter (principal); N23 Unspecified renal colic
CPT/HCPCS: 82365

== ENCOUNTER → 2022-12-23 17:20 | Outpatient (CLI) | payer OTHER, SELFPAY ==
[2022-12-23 17:59] LABS: Cholesterol 187 mg/dL (140-199); Glucose 167 mg/dL (70-100); HDL Cholesterol 25 mg/dL (40-60); LDL Cholesterol Calculated 86 mg/dL (<100); Triglycerides 380 mg/dL (35-150)
[2022-12-24 22:13] LABS: Labcorp Hemoglobin (Hb) A1c 5.9 % (4.8-5.6)
== END ==
PROVIDERS: PCP Registered Nurse Diabetes Educator; Referring Provider Registered Nurse Diabetes Educator; Visit Provider Registered Nurse Diabetes Educator
DX: E78.5 Hyperlipidemia, unspecified (principal); R73.01 Impaired fasting glucose
CPT/HCPCS: 80061; 82947; 83036

== ENCOUNTER → 2022-12-30 06:23 | Outpatient (CLI) | payer OTHER, SELFPAY ==
--- NOTE | 2022-12-30 06:25 | DI.RAD.S_ITS ---
PROCEDURE: XR KUB INDICATIONS: kidney stones TECHNIQUE: One view of the abdomen acquired. COMPARISON: [facility], CR, XR KUB, 11/17/2022, 12:40. FINDINGS: Surgical changes and devices: None. Bowel: Bowel gas pattern is normal. Soft tissues: The previous right ureteral stone is not clearly seen. Visualized solid organ contours appear normal in size. Bones: No suspicious bony lesions. IMPRESSION: The previous right ureteral stone is not clearly seen on this film Dictated by: Raheem Garibay M.D. on 12/30/2022 at 14:34 Approved by: Raheem Garibay M.D. on 12/30/2022 at 14:36
== END ==
PROVIDERS: PCP Registered Nurse Diabetes Educator; Referring Provider Specialist; Visit Provider Specialist
DX: N20.1 Calculus of ureter (principal); N23 Unspecified renal colic
CPT/HCPCS: 74018

== ENCOUNTER → 2023-02-07 08:19 | Outpatient (CLI) | payer OTHER, SELFPAY ==
[2023-02-07 10:53] LABS: BUN Creatinine Ratio 9.6 (6-22); Blood Urea Nitrogen 8 mg/dL (7-17); Calcium 9.1 mg/dL (8.4-10.2); Carbon Dioxide 25 mmol/L (22-32); Chloride 104 mmol/L (98-107); Cholesterol 181 mg/dL (140-199); Estimated Glomerular Filt Rate > 60 mL/min (>60); Glucose 104 mg/dL (70-100); HDL Cholesterol 27 mg/dL (40-60); HEMOLYSIS < 15 (0-50); LDL Cholesterol Calculated 109 mg/dL (<100); Potassium 4.3 mmol/L (3.4-5.1); Sodium 139 mmol/L (137-145); Triglycerides 226 mg/dL (35-150)
[2023-02-07 10:57] LABS: Calcium 9.1 mg/dL (8.4-10.2); Uric Acid 5.2 mg/dL (2.5-6.2)
[2023-02-10 14:08] LABS: Calcium 9.1 mg/dL (8.7-10.2); Parathyroid Hormone, Intact 57 pg/mL (15-65)
== END ==
PROVIDERS: PCP Registered Nurse Diabetes Educator; Referring Provider Specialist; Visit Provider Specialist
DX: N20.1 Calculus of ureter (principal); N23 Unspecified renal colic; E78.5 Hyperlipidemia, unspecified; L68.0 Hirsutism; R73.03 Prediabetes; Z51.81 Encounter for therapeutic drug level monitoring
CPT/HCPCS: 36415; 80048; 80061; 82310; 83970; 84550

== ENCOUNTER → 2023-09-05 08:30 | Outpatient (CLI) | payer OTHER, SELFPAY ==
[2023-09-05 10:18] LABS: Blood Urea Nitrogen 9 mg/dL (7-17); Calcium 9.2 mg/dL (8.4-10.2); Carbon Dioxide 25 mmol/L (22-32); Chloride 106 mmol/L (98-107); Estimated Glomerular Filt Rate > 60 mL/min (>60); Glucose 137 mg/dL (70-100); HEMOLYSIS < 15 (0-50); Potassium 4.4 mmol/L (3.4-5.1); Sodium 138 mmol/L (137-145)
== END ==
PROVIDERS: PCP Registered Nurse Diabetes Educator; Referring Provider Registered Nurse Diabetes Educator; Visit Provider Registered Nurse Diabetes Educator
DX: Z51.81 Encounter for therapeutic drug level monitoring (principal)
CPT/HCPCS: 36415; 80048

== ENCOUNTER → 2023-10-06 17:42 | Outpatient (CLI) | payer OTHER, SELFPAY ==
--- NOTE | 2023-10-06 17:47 | DI.RAD.S_ITS ---
PROCEDURE: XR FINGER LT MIN 2V INDICATIONS: Smashed L finger in window TECHNIQUE: AP hand, 2 views of the 2nd finger(s) acquired. COMPARISON: None. FINDINGS: Bones: No fractures or dislocations. No suspicious bony lesions. Soft tissues: No suspicious soft tissue calcifications. IMPRESSION: No acute bony abnormality. If clinical symptoms persist or clinical suspicion for pathology is high, a repeat examination in 7-10 days is suggested for further evaluation. Dictated by: Anoop Fenton M.D. on 10/06/2023 at 18:55 Approved by: Anoop Fenton M.D. on 10/06/2023 at 18:56
== END ==
LOC: RAD 17:45
PROVIDERS: PCP Registered Nurse Diabetes Educator; Referring Provider Physician Assistant; Visit Provider Physician Assistant
DX: S60.022A Contusion of left index finger without damage to nail, initial encounter (principal)
CPT/HCPCS: 73140

== ENCOUNTER → 2024-02-19 08:06 | Outpatient (CLI) | payer OTHER, SELFPAY ==
[2024-02-19 08:59] LABS: Hematocrit 42.9 % (36-46); Hemoglobin 14.8 g/dL (12.0-16.0); Mean Corpuscular HGB Conc 34.5 % (30-36); Mean Corpuscular Hemoglobin 29.9 PG (26-34); Mean Corpuscular Volume 86.7 fL (80-100); Platelet Count 264 X10^3/uL (150-400); Red Blood Cell Count 4.95 X10^6/uL (4.0-5.2); Red Cell Distribution Width 13.1 % (11.6-14.8)
[2024-02-19 09:19] LABS: Hemoglobin A1C% w Est Avg Glu 5.8 % (4.0-6.0)
[2024-02-19 09:22] LABS: Alanine Aminotransferase 13 IU/L (<35); Albumin 3.9 g/dL (3.5-5.0); Albumin Globulin Ratio 1.4 (1.0-2.8); Alkaline Phosphatase 90 U/L (38-126); Aspartate Aminotransferase 15 IU/L (14-36); BUN Creatinine Ratio 9.5 (6-22); Bilirubin Total 0.4 mg/dL (0.2-1.3); Blood Urea Nitrogen 8 mg/dL (7-17); Calcium 9.3 mg/dL (8.4-10.2); Carbon Dioxide 24 mmol/L (22-32); Chloride 105 mmol/L (98-107); Cholesterol 194 mg/dL (140-199); Estimated Glomerular Filt Rate > 60 mL/min (>60); Globulin 2.7 g/dL (1.7-4.1); Glucose 105 mg/dL (70-100); HDL Cholesterol 33 mg/dL (40-60); HEMOLYSIS < 15 (0-50); LDL Cholesterol Calculated 121 mg/dL (<100); Potassium 4.2 mmol/L (3.4-5.1); Sodium 135 mmol/L (137-145); Total Protein 6.6 g/dL (6.3-8.2); Triglycerides 199 mg/dL (35-150)
[2024-02-19 09:54] LABS: TSH w/ Reflex to FT4 3.29 uIU/mL (0.47-4.68)
== END ==
PROVIDERS: PCP Registered Nurse Diabetes Educator; Referring Provider Registered Nurse Diabetes Educator; Visit Provider Registered Nurse Diabetes Educator
DX: R73.03 Prediabetes (principal); E28.2 Polycystic ovarian syndrome; L68.0 Hirsutism; E78.5 Hyperlipidemia, unspecified
CPT/HCPCS: 36415; 80053; 80061; 83036; 84443; 85027

== ENCOUNTER → 2025-04-28 09:37 | Outpatient (CLI) | payer OTHER, SELFPAY ==
[2025-04-28 11:27] LABS: Hematocrit 42.1 % (36-46); Hemoglobin 14.6 g/dL (12.0-16.0); Mean Corpuscular HGB Conc 34.7 % (30-36); Mean Corpuscular Hemoglobin 29.9 PG (26-34); Mean Corpuscular Volume 86.4 fL (80-100); Platelet Count 260 X10^3/uL (150-400)
[2025-04-28 11:39] LABS: Hemoglobin A1C% w Est Avg Glu 6.6 % (4.0-6.0)
[2025-04-28 11:44] LABS: Alanine Aminotransferase 13 IU/L (<35); Albumin 4.0 g/dL (3.5-5.0); Albumin Globulin Ratio 1.5 (1.0-2.8); Alkaline Phosphatase 92 U/L (38-126); Blood Urea Nitrogen 7 mg/dL (7-17); Calcium 9.0 mg/dL (8.4-10.2); Carbon Dioxide 20 mmol/L (22-32); Chloride 106 mmol/L (98-107); Cholesterol 174 mg/dL (140-199); Estimated Glomerular Filt Rate > 60 mL/min (>60); Globulin 2.7 g/dL (1.7-4.1); Glucose 124 mg/dL (70-99); HDL Cholesterol 31 mg/dL (40-60); HEMOLYSIS < 15 (0-50); Potassium 4.1 mmol/L (3.4-5.1); Sodium 138 mmol/L (137-145); Total Protein 6.7 g/dL (6.3-8.2); Triglycerides 313 mg/dL (35-150)
[2025-04-28 12:15] LABS: TSH w/ Reflex to FT4 4.32 uIU/mL (0.47-4.68)
== END ==
PROVIDERS: PCP Registered Nurse Diabetes Educator; Referring Provider Registered Nurse Diabetes Educator; Visit Provider Registered Nurse Diabetes Educator
DX: R73.03 Prediabetes (principal); E28.2 Polycystic ovarian syndrome; E78.5 Hyperlipidemia, unspecified
CPT/HCPCS: 36415; 80053; 80061; 83036; 84443; 85027

== ENCOUNTER → 2025-05-02 13:53 | Outpatient (CLI) | payer OTHER, SELFPAY ==
[2025-05-02 14:49] LABS: Hemoglobin A1C% w Est Avg Glu 6.6 % (4.0-6.0)
== END ==
PROVIDERS: PCP Registered Nurse Diabetes Educator; Referring Provider Registered Nurse Diabetes Educator; Visit Provider Registered Nurse Diabetes Educator
DX: R73.03 Prediabetes (principal)
CPT/HCPCS: 36415; 83036